=== PATIENT | female | born 1955 | race Caucasian/White ===

== ENCOUNTER → 2016-08-16 16:55 | Outpatient (CLI) | payer OTHER | END | disposition home or self-care (01) | LOC: D.MAMMO 14:45 | DX: Z12.31 Encounter for screening mammogram for malignant neoplasm of breast (principal) ==

== ENCOUNTER → 2017-07-28 15:24 | Outpatient (CLI) | payer OTHER | END | disposition home or self-care (01) | LOC: D.CT 15:24 | DX: R10.9 Unspecified abdominal pain (principal) ==

== ENCOUNTER → 2017-08-22 08:17 | Outpatient (CLI) | payer OTHER | END | disposition home or self-care (01) | LOC: D.MAMMO 08:17 | DX: Z12.31 Encounter for screening mammogram for malignant neoplasm of breast (principal) ==

== ENCOUNTER → 2017-09-19 08:25 | Outpatient (CLI) | payer OTHER | END | disposition home or self-care (01) | LOC: D.MRI 08:25 | DX: K83.9 Disease of biliary tract, unspecified (principal) ==

== ENCOUNTER 2018-03-05 06:40 | Emergency (ER) | payer OTHER ==
[~2018-03-05] VITALS: Ht 172.7 cm; Wt 55.0 kg
--- NOTE | ~2018-03-05 | CN ---
PATIENT NAME:MERLE IVORY MEDICAL RECORD: [id number] : 53 LOCATION:.ER ADMIT DATE: ACCOUNT: [id number] CONSULTING PHYSICIAN: SOPHIA TAPIA MD REFERRING PHYSICIAN: NOHEMI LAUREANO MD DATE OF CONSULTATION: 03/05/2018 DIAGNOSES: 1. Chest pain. 2. Palpitations. 3. Hypertension. HISTORY OF PRESENT ILLNESS: Mrs. Ivory presents with atypical chest pain. It is a right-sided chest pain, but it was associated with palpitations. She has had difficulty controlling her heart rate and blood pressure. She was placed on atenolol. She cannot tolerate this due to a rash. She was placed on Bystolic, could not tolerate that due to hypotension. Now, she is on diltiazem. Yesterday, she felt palpitations as well. She has only had sinus rhythm since being here. Her chest pain has resolved. It was very atypical. It was positional on the right side and radiated to her right arm. Her troponin is normal. PHYSICAL EXAMINATION: GENERAL APPEARANCE: Well-nourished, well-developed, appears stated age. Level of distress, comfortable. PSYCHIATRIC: Mental status, alert, normal affect. Orientation, oriented to time, place and person. EYES: Lids and conjunctiva, noninjected. No discharge, no pallor. ENT: Lips, teeth, gums, normal dentition. Oropharynx, no cyanosis, no pallor. NECK: Carotid arteries, bilateral normal upstroke, no bruits, no thrills. JUGULAR VEINS: No jugular venous pressure or distention. CERVICAL LYMPH NODES: Nontender, nonenlarged. THYROID: Not enlarged. Nontender. No nodules. LUNGS: Respiratory effort, unlabored. CHEST: Normal curvature. No thoracic deformity. No chest wall tenderness. Percussion, resonant. Auscultation, clear. No wheezes, no rales, no rhonchi. CARDIOVASCULAR: Precordial exam, nondisplaced. No heaves or pericardial thrills. Rate and rhythm, regular. Heart sounds, normal S1, normal S2. No S3, no gallop, no rub. Systolic murmur, not heard. Diastolic murmur, not heard. EXTREMITIES: No cyanosis, no edema. Peripheral pulses, full and equal in all extremities, except as noted. No bruits appreciated. ABDOMEN: Soft, nondistended. Normal aorta. No bruit. Nontender. No masses. Liver, nontender, no hepatomegaly. Spleen, nontender, no splenomegaly. MUSCULOSKELETAL: No joint tenderness. No joint swelling. No erythema. NEUROLOGICAL: Normal gait, normal strength, normal tone. SKIN: Warm and dry. OVERALL IMPRESSION: Chest pain, palpitation. Certainly sounds like she very well may been having a dysrhythmia. She is not tolerating the diltiazem. We will try Lopressor 50 mg b.i.d. and she tolerated the atenolol, felt better on the atenolol than anything. She will follow up us with a nuclear stress test as well. TRANSINT:[id number] Voice Confirmation ID: [id number] DOCUMENT ID: [id number] CONSULT REPORT [id number] MERLE IVORY, SOPHIA BYRNE at 1718 CC: [id number] DICTATION DATE: 03/05/18810 SOFTWARE LEAD: 03/05/18 1049 DEP ER 03/05/[address] [address]
[2018-03-05 06:48] VITALS: Ht 172.7 cm; Wt 55.0 kg
[2018-03-05] MEDS ORDERED: ZANTAC300 MG PO (06:50)
[2018-03-05] MEDS ORDERED: ADVIL200 MG (06:51)
[2018-03-05] MEDS ORDERED: NORVASC5 MG PO (06:51)
[2018-03-05] MEDS ORDERED: CARDIZEM30 MG PO (06:51)
[2018-03-05 07:52] LABS: ALBUMIN 4.2 g/dL (3.4-5.0); ALKALINE PHOSPHATASE 57 U/L (46-116); ALT (SGPT) 13 U/L (10-68); BILIRUBIN - TOTAL 0.39 mg/dL (0.2-1.3); CALC OSMOLALITY 267 mosm/kg (275-300); CALCIUM 9.4 mg/dL (8.5-10.1); CARBON DIOXIDE 25.2 mmol/L (21.0-32.0); CHLORIDE - SERUM 97 mmol/L (98-107); CREATININE - SERUM 0.9 mg/dL (0.6-1.3); GLUCOSE 102 mg/dL (74-106); POTASSIUM - SERUM 3.2 mmol/L (3.5-5.1); PROTEIN - SERUM 7.5 g/dL (6.4-8.2); SODIUM 135 mmol/L (136-145); UREA NITROGEN 6 mg/dL (7-18); eGFR NON AFRICAN AMERICAN 67 mL/min (90-120)
[2018-03-05 07:56] LABS: BASOPHILS 0.3 % (0-2); EOSINOPHILS 0.6 % (0-7); HEMATOCRIT 38.3 % (36.0-48.0); IMMATURE GRANULOCYTES 0.3 % (0-5); LYMPHOCYTES 11.1 % (15-50); MCH 30.2 pg (26.0-34.0); MCHC 33.9 g/dL (31.0-37.0); MCV 88.9 fL (80.0-100.0); MEAN PLATELET VOLUME 10.9 fL (7.4-10.4); MONOCYTES 6.7 % (2-11); PLATELET COUNT 275 10x3/uL (130-400); RBC 4.31 10x6/uL (4.00-5.40); WBC 10.2 10x3/uL (4.8-10.8)
[2018-03-05 07:57] LABS: APTT 27.2 SECONDS (22.8-39.4); INR 0.97 (0.85-1.17); PROTIME 12.4 SECONDS (11.6-15.0)
[2018-03-05 08:03] LABS: CKMB 0.8 U/L (0.0-3.6); CREATINE KINASE 83 UL (21-215); TROPONIN-I < 0.017 ng/mL (0.000-0.060)
[2018-03-05 08:44] VITALS: BP 135/078
== END 2018-03-05 08:46 | disposition home or self-care (01) ==
LOC: D.ER 06:40
PROVIDERS: Family Medicine
DX: R07.89 Other chest pain (principal); I10 Essential (primary) hypertension; K21.9 Gastro-esophageal reflux disease without esophagitis; F17.200 Nicotine dependence, unspecified, uncomplicated

== ENCOUNTER 2018-03-12 16:19 | Inpatient (IN) | payer OTHER ==
[~2018-03-12] VITALS: Ht 172.7 cm; Wt 51.3 kg
--- NOTE | ~2018-03-12 | OP ---
PATIENT NAME: MERLE GARY MEDICAL RECORD: [id number] :53 LOCATION:D. D.2118 ADMISSION DATE:03/12/18 SURGEON: SOPHIA TAPIA MD DATE OF OPERATION: 03/13/2018 PROCEDURES: 1. Left heart catheterization. 2. Selective coronary angiography. 3. Left ventriculogram. 4. Four-vessel carotid and vertebral angiography. INDICATION: Chest pain, dizziness, palpitation, shortness of breath. PROCEDURE IN DETAIL: After informed consent was obtained and after a detailed description of risks, benefits as well as alternative therapies, the patient elected to proceed with angiogram and heart catheterization. FINDINGS: Four-vessel was performed with subselection of each subclavian as well as the left carotid. RIGHT SYSTEM: The common internal and external carotids have no significant disease. Vertebral artery has no significant disease. LEFT SYSTEM: The common internal and external carotids have no significant disease. The vertebral artery has no significant disease. Left ventriculogram was performed in the standard 30-degree TORRE view reveals good cardiac wall motion throughout all segments. Overall ejection fraction estimated 60%. SELECTIVE CORONARY ANGIOGRAPHY: Left main, left anterior descending, left circumflex, right coronary artery are all smooth-walled vessels with no angiographic evidence of coronary artery disease. OVERALL IMPRESSION: 1. No angiographic evidence of coronary artery disease. 2. Normal left heart pressures. 3. Normal left ventricular systolic function. Chest pain is noncardiac in etiology. No further cardiac workup needs to be ascertained. TRANSINT:[id number] Voice Confirmation ID: [id number] DOCUMENT ID: [id number] SOPHIA TAPIA MD at 1108 CC: JACKELYN HENDRIX [id number] DICTATION DATE: 03/13/18 1553 COMMUNICATIONS STRATEGIST: 03/14/18 0001 DIS IN 03/13/18 [facility] [address] [facility] [place] [address]
--- NOTE | ~2018-03-12 | EC ---
PATIENT:MERLE GARY DATE OF SERVICE: 03/12/18 SEX: F MEDICAL RECORD: [id number] DATE OF : 53 LOCATION:D.M2 D.211 AGE OF PATIENT: 63 ADMISSION DATE: 03/12/18 REFERRING PHYSICIAN: INTERPRETING PHYSICIAN: SOPHIA WAITE MD ECHOCARDIOGRAM REPORT ECHO CHARGES 4 ECHO COMPLETE Date: 03/13/18 CLINICAL DIAGNOSIS: CHEST PAIN ECHOCARDIOGRAPHIC MEASUREMENTS (adult normal given) AC root (d.<3.7cm) 2.9 cm LV Septum d (<1.2 cm> 1.2 cm Valve Excursion 1.1 cm LV Septum (systole) 1.3 cm Left Atria (s.<4.0cm> 2.8 cm LVPW d(<1.2cm) 1.4 cm RV (d.<2.3cm) 3.4 cm LVPW (sytole) 1.7 cm LV diastole(<5.6CM) 4.6 cm MV E-F(>70mm/sec) cm LV systole 3.3 cm LVOT Diameter 1.6 cm MV exc.(>10mm) 1.3 cm Est.ejection fraction (50-75%) % DOPPLER: LVIT cm/sec A 64.0 cm/sec E 80.0 cm/sec LA cm/sec RVSP 30 mmHg LVOT 113 cm/sec AOP1/2T m/s Asc. Ao 175 cm/sec RVOT 93 cm/sec RA cm/sec PA 140 cm/sec AV Gradient Peak 12.25mmHg AV Mean 6.23 mmHg AV Area 1.5 cm MV Gradient Peak 3.36 mmHg MV Mean 1.11 mmHg MV Area cm COMMENTS: Talent Sourcer: Leonardo HIGUERA Hydrogen Cell Tender: 1 Dr. Waite TAPE# PACS Pericardial Effusion N DATE OF SERVICE: 03/13/2018 PROCEDURE: Echocardiogram. FINDINGS: 1. Left ventricular chamber size is within normal limits. Left ventricular systolic function is normal. Overall ejection fraction estimated at 60%. 2. Left atrium, right atrium, and right ventricle chamber sizes are within normal limits. 3. Valvular structures have normal structure and motion. ECHOCARDIOGRAM REPORT [id number] MERLE GARY 4. Doppler interrogation only reveals mild tricuspid regurgitation, no other valvular insufficiency or stenosis. Pulmonary systolic pressure is normal estimated 30 mmHg. 5. No evidence of pericardial effusion or left ventricular thrombus. TRANSINT:[id number] Voice Confirmation ID: [id number] DOCUMENT ID: [id number] SOPHIA WAITE MD at 1108 CC: [id number] DICTATION DATE: 03/13/18 1607 BUSINESS MACHINE OPERATOR: 03/14/18 0013 DIS IN 03/13/18 [place] [id number] [place] [id number]
--- NOTE | ~2018-03-12 | MORECARE ---
CASE MANAGEMENT DISCHARGE SUMMARY PATIENT: MERLE GARY UNIT: [id number] ADM DATE: 03/12/18 AGE: 63 : 53 SEX: F ROOM/BED: D.6564 AUTHOR: RONALD MONTAÑO PHYSICIAN: REFERRING PHYSICIAN: JACKELYN HENDRIX MD DATE OF SERVICE: 03/16/18 Discharge Plan Patient Name: MERLE GARY [facility] : 1955 Planned Disposition: Home Anticipated Discharge Date: 03/13/18 Discharge Date: 03/13/2018 Expected LOS: 1 Initial Reviewer: [email or web address] Initial Review Date: 03/16/2018 Generated: 03/16/18 1:13 pm Patient Name: MERLE GARY Page [phone] at 1213 All edits/amendments must be made on the electronic document DICTATION DATE: 03/16/18 1212 COMMERCIAL MANAGEMENT ACCOUNTANT: SANJIV 03/16/18 1212 RPT#: [id number] DC DATE:03/13/18 STATUS: DIS IN [facility] [address] [place] [address] END OF REPORT
--- NOTE | ~2018-03-12 | HP ---
PATIENT: MERLE GARY MEDICAL RECORD: [id number] ACCOUNT: [id number] LOCATION:[address] : 53 ADMISSION DATE: 03/12/18 PCP: JACKELYN HENDRIX MD HISTORY AND PHYSICAL EXAMINATION DATE OF ADMISSION: 03/12/2018 CHIEF COMPLAINT: Extreme fatigue as well as cardiac palpitation, chest pain, weight loss, and decreased appetite. HISTORY OF PRESENT ILLNESS: The patient is a 63-year-old female who, over the past month, has experienced weakness and dizziness. Also she has had cardiac palpitations. She has been seen by the optical design engineer. She has been tried on beta-alphonso. She had presented to the Emergency Room, tried on different beta-blockers. The patient states she became extremely fatigued. She has had shortness of breath with exertion. It was felt the patient warrants acute admission. PAST MEDICAL HISTORY: Significant in that she has had hypertension. She has also had some depression. She has had anemia in the past. She is . FAMILY HISTORY: Father had hypertension, had heart disease. Mother also had colon cancer. SOCIAL HISTORY: The patient works in [employer]. She is educated to the 12th grade. She is currently . One pack per day smoker for most of her adult life. She denies any ethanol use or abuse. She was born in [place] and resides in [place] along with her . PAST SURGICAL HISTORY: She has had a cholecystectomy. MEDICATIONS: The patient's medications currently include Cozaar 50 mg once a day, ranitidine 150 mg b.i.d., and Vistaril 25 q. 6 hours p.r.n. itching. ALLERGIES: AUGMENTIN, CEFTIN, IV CONTRAST, LEVAQUIN, AND SULFA. REVIEW OF SYSTEMS: CONSTITUTIONAL: She denies any headache, seizure, or syncope. She denies change in visual or auditory acuity. PULMONARY: She does report some increasing shortness of breath. CARDIOVASCULAR: Chest pain with exertion. GASTROINTESTINAL: No chronic nausea, vomiting, melena, or hematochezia. GENITOURINARY: No urgency, frequency, or dysuria. PHYSICAL EXAMINATION: VITAL SIGNS: Today, her weight is 120 pounds, her pulse is 92, and O2 sat is 98% on room air. Her blood pressure is 136/82 and her respirations are 16. HEENT: Her head is normocephalic. No lesions. Ears; TMs are clear. Eyes; pupils are equal, round, and reactive to light. Her extraocular movements are intact. Nasal cavity, oral cavity, and oropharynx are clear. NECK: Supple. There is no adenopathy. HEART: Regular rate and rhythm without any murmurs, gallops, or rubs. LUNGS: Clear. ABDOMEN: Soft. Bowel sounds are positive. EXTREMITIES: Lower extremities have no edema. HISTORY AND PHYSICAL [id number] MERLE GARY ASSESSMENT: 1. Extreme fatigue with shortness of breath, cardiac palpitations, and chest pain. 2. Hypertension. 3. Gastroesophageal reflux. PLAN: The patient will be admitted. She will have a CT scan of the abdomen. Cardiology consultation will be obtained for possible cardiac catheterization. We will obtain ABGs, CBC, CMP, and cardiac enzymes. Continue to evaluate this. TRANSINT:[id number] Voice Confirmation ID: [id number] DOCUMENT ID: [id number] JACKELYN HENDRIX MD at 1123 CC: [id number] DICTATION DATE: 03/12/18 1727 [employer] SALESPERSON: 03/12/18 1812 DIS IN 03/13/18 [facility] [address] [place] [address]
--- NOTE | ~2018-03-12 | HEMODYNAMI ---
PATIENT:MERLE GARY MEDICAL RECORD: [id number] : 53 LOCATION:[facility] D2118 ADMISSION DATE: 03/12/18 Generatedon:03/13/201815:54 Patient name: MERLE GARY Patient #: [id number] SSN: DO B: 1955 Date of study: 03/13/2018 Page: Of Hemodynamic Procedure Report Patient Data Patient Demographics Procedure consent was obtained First Name: MERLE Gender: Female Last Name: ABDIRAHMAN : 1955 Patient #: [id number] Age: 63 year(s) Race: Unknown Additional ID: [id number] Contact details Address: [facility] [address] State: [place] City: [place] Zip code: [address] Past Medical History Allergies Allergen Reaction Date Comments Reported Iodine 03/13/2018 Sulfa drugs 03/13/2018 Amoxicillin 03/13/2018 Admission Admission Data Admission Date: 03/12/2018 Admission Time: 16:19 Room #: D2118 Lab Results Lab Result Date: 03/13/2018 Lab Result Time: 0:00 Biochemistry Name Units Result Min Max BUN mg/dl 14.5 --(--*-)-- 7 18 Creatinine mg/dl 0.7 --(*---)-- 0.6 1.3 CBC Name Units Result Min Max Hemoglobin g/dl 11.9 *-(----)-- 13.5 17.5 Procedure Procedure Types Cath Procedure Diagnostic Procedure LHC LHC w/Coronaries Peripheral Cath Diagnostic Procedure Cook Fish And Chips Peripheral Procedures Four Vessel Arteriogram Procedure Description Procedure Date Procedure Date: 03/13/2018 Procedure Start Time: 15:40 Procedure End Time: 15:49 Procedure Staff Name Function Jag Waite MD Performing Physician Terell Medina RT Monitor Sabina Narayanan RT Scrub Eric Olvera RN Nurse Procedure Data Cath Procedure Fluoroscopy Diagnostic fluoroscopy Total fluoroscopy Time: 1.6 time: 1.6 min min Diagnostic fluoroscopy Total fluoroscopy dose: dose: 51.57 mGy 51.57 mGy Contrast Material Contrast Material Type Amount (ml) Isovue 300 47 Entry Location Entry Primary Successful Side Size Upsize Upsize Entry Closure Succes sful Closure Location (Fr) 1 (Fr) 2 (Fr) Remarks Device Remarks Femoral Right 5 Fr Exoseal artery Diagnostic catheters Device Type Used For End Catheter Placement MULTIPACK Pigtail 5 Fr LV Angiography catheter MULTIPACK JL 4.0 5Fr Left Coronary catheter Angiography MULTIPACK 3DRC 5Fr Right Coronary catheter Angiography Procedure Complications No complications Procedure Medications Medication Administration Route Dosage Oxygen etCO2 Nasal cannula 2 l/min Zofran I.V. 4 mg Lidocaine 2% added to field 20 Heparin Flush Bag added to field 2 bags (1000units/500ml NS) 0.9% NaCl I.V. 100 ml/hr Versed I.V. 2 mg Fentanyl I.V. 100 mcg Versed I.V. 1 mg Fentanyl I.V. 50 mcg Hemodynamics Rest HGB: 11.9 (g/dl) Heart Rate: 83 (bpm) Snapshots Pre Cath Intra NCS Post Cath Vital Signs Time Heart Resp SPO2 etCO2 NIBP (mmHg) Rhythm Pain Sedation Rate (ipm) (%) (mmHg) Status Level (bpm) 15:30:07 81 14 96 137/87(108) NSR 0 (11) 10(A) , No pain 15:34:17 75 16 97 115/70(97) NSR 0 (11) 10(A) , No pain 15:38:19 75 13 98 28.8 130/73(94) NSR 0 (11) 10(A) , No pain 15:42:27 70 18 99 23.4 113/67(89) NSR 0 (11) 9(A) , No pain 15:46:29 77 16 98 20.4 127/72(96) NSR 0 (11) 9(A) , No pain 15:52:00 73 18 99 15.1 110/65(86) NSR 0 (11) 10(A) , No pain Medications Time Medication Route Dose Verified Delivered Reason Notes Eff ectiveness by by 15:28:17 Oxygen etCO2 2 Jag Reyes used for Nasal l/min Mariann Olvera RN procedure cannula 15:28:31 Zofran I.V. 4 mg Jag Reyes for nausea Mariann Olvera RN 15:28:40 Lidocaine 2% added 20ml Jag Rm for local to vial Mariann Waite MD anesthetic field 15:28:46 Heparin Flush added 2 Jag Rm used for Bag to bags Mariann Waite MD procedure (1000units/500ml field NS) 15:28:56 0.9% NaCl I.V. 100 Jag Reyes Per ml/hr Mariann Olvera RN physician 15:38:17 Versed I.V. 2 mg Jag Reyes for Mariann Olvera RN sedation 15:38:23 Fentanyl I.V. 100 Jag Combsie for mcg Mariann Olvrea RN sedation 15:43:16 Versed I.V. 1 mg Jag Reyes for Mariann Olvera RN sedation 15:43:20 Fentanyl I.V. 50 Jag Combsie for mcg Mariann Olvera RN sedation Procedure Log Time Note 15:08:12 Signed procedure consent form obtained from patient. 15:08:14 Diagnostic Cath status Elective 15:08:15 Terell Medina RT(R) sent for patient. Start room use. 15:08:16 Time tracking: Regular hours (M-F 7:00 - 5:00) 15:08:20 Plan of Care:Hemodynamics will remain stable., Cardiac rhythm will remain stable., Comfort level will be maintained., Respiratory function will remain adequate., Patient/ family verbilizes understanding of procedure., Procedure tolerated without complication., Recovers from procedure without complications.. 15:18:55 Patient received from Med II to CCL 3 Alert and oriented. Tansferred to table in Supine position. 15:18:56 Warm blankets applied, and kwame hugger turned on for patient comfort. 15:18:57 Correct patient and procedure confirmed by team. 15:28:17 Oxygen 2 l/min etCO2 Nasal cannula was administered by Eric Olvera RN; used for procedure; 15:28:31 Zofran 4 mg I.V. was administered by Eric Olvera RN; for nausea; 15:28:40 Lidocaine 2% 20ml vial added to field was administered by Jag Waite MD; for local anesthetic; 15:28:46 Heparin Flush Bag (1000units/500ml NS) 2 bags added to field was administered by Jag Waite MD; used for procedure; 15:28:56 0.9% NaCl 100 ml/hr I.V. was administered by Eric Olvera RN; Per physician; 15:29:00 Vital chart was started 15:31:18 Baseline sample Acquired. 15:31:18 ECG and BP/O2 sat monitors applied to patient. 15:31:21 Rhythm: sinus rhythm 15:31:24 Full Disclosure recording started 15:31:36 H&P Date Dictated: 03/13/2018 Within 30 days and on chart.. 15:31:38 Pre-procedure instructions explained to patient. 15:31:38 Pre-op teaching completed and patient verbalized understanding. 15:31:40 Family in patients room. 15:31:41 Patient NPO since Midnight. 15:31:49 Patient allergic to Iodine 15:32:14 Patient allergic to Sulfa drugs 15:32:19 Patient allergic to Amoxicillin 15:32:28 Is the patient allergic to Iodine/contrast media? Yes. 15:32:30 Was the patient premedicated? Yes 15:32:43 Is patient on blood thinner?No 15:32:46 Patient diabetic? No. 15:32:48 If diabetic: On Metformin? No 15:32:49 ----Pre-sedation anethsthesia assessment.---- 15:32:51 Previous problem with sedation/anesthesia? No ? 15:32:54 Snore? No 15:32:55 Sleep apnea? No 15:32:56 Deviated septum? No 15:32:58 Opens mouth fully? Yes 15:33:00 Sticks out tongue? Yes 15:33:03 Airway obstruction? No ? 15:33:08 Dentures? No ? 15:33:10 Pre procedure: right dorsailis pedis pulse 2+ Normal; easily identifiable; not easily obliterated 15:33:13 Patient pain scale 0/10 ?. 15:34:10 IV patent on arrival in left forearm with 0.9% NaCl at 10ml/hr. 15:34:44 Lab Result : BUN 14.5 mg/dl 15:34:44 Lab Result : Hemoglobin 11.9 g/dl 15:34:44 Lab Result : Creatinine 0.7 mg/dl 15:35:16 Lab results completed and on chart. 15:35:19 Right groin area was prepped with chlora-prep and draped in sterile fashion 15:35:20 Alarms reviewed by R. N. 15:35:20 Sharps counted by scrub and verified by R.N. 15:35:22 Physician arrived 15:35:22 --------ALL STOP TIME OUT------ 15:35:23 Final Timeout: patient, procedure, and site verified with staff and physician. All members of the team are in agreement. 15:35:27 Right groin site verified by team. 15:35:30 Physical assessment completed. ASA score P 2 - A patient with mild systemic disease as per Jag Waite MD. 15:35:33 Sedation plan: IV Moderate Sedation Medication:Versed, Fentanyl 15:38:14 Zero performed for pressure channel P1 15:38:17 Versed 2 mg I.V. was administered by Eric Olvera RN; for sedation; 15:38:23 Fentanyl 100 mcg I.V. was administered by Eric Olvera RN; for sedation; 15:38:33 Use device set Femoral Dx 15:38:39 ACIST Syringe (56313) opened to sterile field. 15:38:40 Bag Decanter (2002S) opened to sterile field. 15:38:41 Medline Cath Pack ([id number]) opened to sterile field. 15:38:42 DIAGNOSTIC WIRE .035 260cm J wire (711001) opened to sterile field. 15:38:43 ACIST Hand Control (91839) opened to sterile field. 15:38:44 ACIST Manifold (98647) opened to sterile field. 15:38:45 DIAGNOSTIC Multipack 5Fr catheter set ([id number]) opened to sterile field. 15:38:46 Tegaderm 4 x 4 (1626W) opened to sterile field. 15:38:49 SHEATH 5FR [place] (ATI632) opened to sterile field. 15:39:56 Procedure started. 15:40:57 Local anesthetic to right femoral artery with Lidocaine 2% by Jag Waite MD.INITIAL ACCESS ONLY 15:41:10 A 5 Fr sheath was inserted into the Right Femoral artery 15:41:20 A MULTIPACK Pigtail 5 Fr catheter was advanced over the wire and used for LV Angiography. 15:41:24 LV angiography performed. 15:41:25 LV gram done using TORRE 15:42:51 EF : 60 % 15:42:53 Catheter removed. 15:43:16 Versed 1 mg I.V. was administered by Eric Olvera RN; for sedation; 15:43:20 Fentanyl 50 mcg I.V. was administered by Eric Olvera RN; for sedation; 15:43:50 A MULTIPACK JL 4.0 5Fr catheter was advanced over the wire and used for Left Coronary Angiography. 15:43:57 LCA angiography performed. 15:44:38 Catheter removed. 15:44:45 A MULTIPACK 3DRC 5Fr catheter was advanced over the wire and used for Right Coronary Angiography. 15:44:50 RCA angiography performed. 15:45:16 Right carotid angiography performed. 15:45:18 Right subclavian angiography performed 15:45:19 Left carotid angiography performed. 15:45:20 Left subclavian angiography performed 15:46:31 Catheter removed. 15:46:38 Contrast amount:Isovue 300 47ml. 15:46:50 Sheath removed intact; hemostasis achieved with Exoseal to the Right Femoral artery. 15:47:56 EXOSEAL 5Fr (EX500) opened to sterile field. 15:47:58 Procedure ended.(Physican Out) 15:48:27 Fluoroscopy time 01.60 minutes. 15:48:38 Fluoroscopy dose: 51.57 mGy 15:48:38 Flurop Dose total: 51.57 15:48:40 Sharps counted by scrub and verified by R.N. 15:48:42 Insertion/operative site no bleeding no hematoma. 15:48:44 Post-op/insertion site Right Femoral artery dressed using a 4 x 4 and Tegaderm. 15:48:47 Post right femoral artery:stable 15:48:49 Post Procedure Pulses reassessed and unchanged 15:48:51 Post procedure: right dorsailis pedis pulse 1+ Palpable, but thready & weak; easily obliterated. 15:48:55 Post procedure rhythm: sinus rhythm 15:48:57 Post procedure instruction explained to patient.Patient verbalizes understanding. 15:49:00 Procedure and supply charges have been captured, reviewed, submitted and are correct. 15:49:09 Procedure Complication : No complications 15:49:11 Vital chart was stopped 15:49:12 See physician's report for complete and final results. 15:49:13 Report given to PCU. 15:49:17 Patient transfered to PCU with Bed. 15:49:18 Procedure ended. 15:49:18 Full Disclosure recording stopped 15:49:25 End room use (Document Last) 15:50:09 Procedure type changed to Cath procedure, Diagnostic procedure, LHC, LHC w/Coronaries, Peripheral Cath Diagnostic Procedure, Cook Fish And Chips Peripheral Procedures, Four Vessel Arteriogram Device Usage Item Name Manufacture Quantity Catalog Hospital Part Current Minimal L ot# / Number Charge Number Stock Stock Serial# Code ACIST Acist 1 02280 649607 683231 255847 20 Syringe Medical (32614) Systems Inc Bag Microtek 1 2001S 208025 14147 266894 5 Decanter Medical Inc. () Medline Medline 1 [id number] 309267 95056 824668 5 Cath Pack ([id number]) DIAGNOSTIC [facility] [place] 1 252821 117476 700905 512790 30 WIRE .035 260cm J wire (201982) ACIST Hand Acist 1 62817 069722 375735 691092 5 Control Medical (31146) Systems Inc ACIST Acist 1 62499 534446 948883 376113 5 Manifold Medical (75952) Systems Inc DIAGNOSTIC Cardinal 1 XZ0033 838074 77877 287320 30 Multipack Health 5Fr catheter set ([id number]) Tegaderm 4 3M 1 1626W 233834 819507 762076 5 x 4 (1626W) SHEATH 5FR Terumo 1 XLL355 378266 010798 111399 5 [place] (JJC845) MULTIPACK Cardinal 1 857035 5 Pigtail 5 Health Fr catheter MULTIPACK Cardinal 1 106668 5 JL 4.0 5Fr Health catheter MULTIPACK Cardinal 1 484075 5 3DRC 5Fr Health catheter EXOSEAL 5Fr Cardinal 1 EX500 572306 714884 862410 10 (EX500) Health Signature Audit [place] Stage Time Signature Unsigned Intra-Procedure 03/13/2018 Terell Medina RT(R) 3:54:19 PM Signatures Monitor : Terell Medina RT Signature : Date : Time : [place] [address] [place] [address]
[~2018-03-12 16:19] MED LIST: ADVIL200 MG; CARDIZEM30 MG PO; NORVASC5 MG PO; ZANTAC300 MG PO
[2018-03-12] MEDS ORDERED: COZAAR50 MG PO (17:07)
[2018-03-12] MEDS ORDERED: RANITIDINE HCL150 M1 PO (17:08)
[2018-03-12 18:39] LABS: BASOPHILS 0.6 % (0-2); HEMATOCRIT 35.5 % (36.0-48.0); HEMOGLOBIN 11.9 g/dL (12-16); LYMPHOCYTES 23.5 % (15-50); MCH 30.1 pg (26.0-34.0); MCHC 33.5 g/dL (31.0-37.0); MCV 89.6 fL (80.0-100.0); MEAN PLATELET VOLUME 10.6 fL (7.4-10.4); MONOCYTES 12.2 % (2-11); NEUTROPHILS 61.7 % (40-80); PLATELET COUNT 232 10x3/uL (130-400); RBC 3.96 10x6/uL (4.00-5.40); WBC 7.2 10x3/uL (4.8-10.8)
[2018-03-12 18:40] VITALS: BMI 18.2
[2018-03-12 19:04] LABS: ALBUMIN 3.8 g/dL (3.4-5.0); ALKALINE PHOSPHATASE 49 U/L (46-116); ALT (SGPT) 13 U/L (10-68); BILIRUBIN - TOTAL 0.35 mg/dL (0.2-1.3); CALC OSMOLALITY 266 mosm/kg (275-300); CALCIUM 8.8 mg/dL (8.5-10.1); CHLORIDE - SERUM 99 mmol/L (98-107); CREATININE - SERUM 0.7 mg/dL (0.6-1.3); GLUCOSE 123 mg/dL (74-106); POTASSIUM - SERUM 3.5 mmol/L (3.5-5.1); PROTEIN - SERUM 6.5 g/dL (6.4-8.2); SODIUM 134 mmol/L (136-145); UREA NITROGEN 6 mg/dL (7-18); eGFR NON AFRICAN AMERICAN 89 mL/min (90-120)
[2018-03-12 19:15] LABS: CKMB 0.5 U/L (0.0-3.6); CREATINE KINASE 63 UL (21-215); T4 THYROXINE 10.7 ug/dL (4.7-13.3); THYROID STIMULATING HORMONE 0.89 uIU/mL (0.36-3.74); TROPONIN-I < 0.017 ng/mL (0.000-0.060)
[2018-03-12 20:10] VITALS: BP 115/66; BP 120/60
[2018-03-12 20:11] VITALS: BP 175/85
[2018-03-12 21:54] VITALS: BP 120/60
[2018-03-13 00:33] VITALS: BP 129/66
[2018-03-13 05:13] VITALS: BP 151/86
[2018-03-13 05:24] LABS: CALC OSMOLALITY 278 mosm/kg (275-300); CALCIUM 8.9 mg/dL (8.5-10.1); CARBON DIOXIDE 27.7 mmol/L (21.0-32.0); CHLORIDE - SERUM 103 mmol/L (98-107); CREATININE - SERUM 0.8 mg/dL (0.6-1.3); GLUCOSE 96 mg/dL (74-106); SODIUM 141 mmol/L (136-145); UREA NITROGEN 7 mg/dL (7-18); eGFR NON AFRICAN AMERICAN 76 mL/min (90-120)
[2018-03-13 05:25] LABS: BASOPHILS 0.6 % (0-2); EOSINOPHILS 2.9 % (0-7); HEMATOCRIT 38.1 % (36.0-48.0); HEMOGLOBIN 12.6 g/dL (12-16); IMMATURE GRANULOCYTES 0.2 % (0-5); LYMPHOCYTES 22.9 % (15-50); MCH 29.9 pg (26.0-34.0); MCHC 33.1 g/dL (31.0-37.0); MCV 90.5 fL (80.0-100.0); MEAN PLATELET VOLUME 11.4 fL (7.4-10.4); MONOCYTES 9.5 % (2-11); NEUTROPHILS 63.9 % (40-80); PLATELET COUNT 262 10x3/uL (130-400); RBC 4.21 10x6/uL (4.00-5.40); RDW 13.1 % (11.5-14.5); WBC 6.5 10x3/uL (4.8-10.8)
[2018-03-13 05:31] LABS: POTASSIUM - SERUM 4.2 mmol/L (3.5-5.1)
[2018-03-13 06:41] LABS: APPEARANCE CLEAR (CLEAR); BILIRUBIN NEGATIVE (NEGATIVE); COLOR STRAW (YELLOW); GLUCOSE NEGATIVE (NEGATIVE); KETONE NEGATIVE (NEGATIVE); NITRITE NEGATIVE (NEGATIVE); PROTEIN NEGATIVE (NEGATIVE); UROBILINOGEN NORMAL (NORMAL)
[2018-03-13 08:50] VITALS: BP 136/83
[2018-03-13 13:31] VITALS: Ht 172.7 cm; Wt 51.3 kg
[2018-03-13 14:42] VITALS: BP 122/65
[2018-03-13 17:08] VITALS: BP 117/73
== END 2018-03-13 20:30 | disposition home or self-care (01) | DRG 287 ==
LOC: D.M2 16:19
PROVIDERS: Family Medicine; Internal Medicine Interventional Cardiology
PROC: 4A023N7 Measurement of Cardiac Sampling and Pressure, Left Heart, Percutaneous Approach (ICD-10-PCS; 2018-03-13)
PROC: B3151ZZ Fluoroscopy of Bilateral Common Carotid Arteries using Low Osmolar Contrast (ICD-10-PCS; 2018-03-13)
PROC: B31G1ZZ Fluoroscopy of Bilateral Vertebral Arteries using Low Osmolar Contrast (ICD-10-PCS; 2018-03-13)
PROC: B3121ZZ Fluoroscopy of Left Subclavian Artery using Low Osmolar Contrast (ICD-10-PCS; 2018-03-13)
PROC: B3181ZZ Fluoroscopy of Bilateral Internal Carotid Arteries using Low Osmolar Contrast (ICD-10-PCS; 2018-03-13)
PROC: B31C1ZZ Fluoroscopy of Bilateral External Carotid Arteries using Low Osmolar Contrast (ICD-10-PCS; 2018-03-13)
PROC: B2111ZZ Fluoroscopy of Multiple Coronary Arteries using Low Osmolar Contrast (ICD-10-PCS; principal; 2018-03-13 15:08)
PROC: B2151ZZ Fluoroscopy of Left Heart using Low Osmolar Contrast (ICD-10-PCS; 2018-03-13 15:08)
DX: R00.2 Palpitations (principal); R06.02 Shortness of breath; I10 Essential (primary) hypertension; K21.9 Gastro-esophageal reflux disease without esophagitis; F32.9 Major depressive disorder, single episode, unspecified; R42 Dizziness and giddiness

== ENCOUNTER → 2018-03-24 07:21 | Outpatient (CLI) | payer OTHER ==
[2018-03-13 13:31] VITALS: BMI 17.1
[~2018-03-24 07:21] MED LIST changes: +COZAAR50 MG PO; +RANITIDINE HCL150 M1 PO
== END | disposition home or self-care (01) ==
LOC: D.CT 07:21
DX: R06.02 Shortness of breath (principal)

== ENCOUNTER 2018-03-28 05:46 | Emergency (ER) | payer OTHER ==
[~2018-03-28] VITALS: Ht 172.7 cm; Wt 52.3 kg
[2018-03-28 05:55] VITALS: Ht 172.7 cm; Wt 52.3 kg
[2018-03-28 06:57] VITALS: BP 139/87
== END 2018-03-28 06:58 | disposition home or self-care (01) ==
LOC: D.ER 05:46
DX: F45.8 Other somatoform disorders (principal); F41.9 Anxiety disorder, unspecified; R06.02 Shortness of breath; I10 Essential (primary) hypertension

== ENCOUNTER → 2019-06-21 18:33 | Outpatient (CLI) | payer MEDICARE, BC ==
[2018-03-28 05:55] VITALS: BMI 17.5
== END | disposition home or self-care (01) ==
LOC: D.MAMMO 05-28 11:45
PROVIDERS: ATTEND Family Medicine
DX: Z12.31 Encounter for screening mammogram for malignant neoplasm of breast (principal)

== ENCOUNTER → 2020-01-04 10:48 | Outpatient (CLI) | payer MEDICARE, BC ==
[2018-03-28 05:55] VITALS: BMI 17.5
== END | disposition home or self-care (01) ==
LOC: D.US 10:48
PROVIDERS: ATTEND Internal Medicine Cardiovascular Disease
DX: I65.23 Occlusion and stenosis of bilateral carotid arteries (principal)

== ENCOUNTER → 2020-06-09 10:22 | Outpatient (CLI) | payer MEDICARE, BC ==
[2018-03-28 05:55] VITALS: BMI 17.5
== END | disposition home or self-care (01) ==
LOC: D.LAB 10:22
PROVIDERS: ATTEND Internal Medicine Pulmonary Disease
DX: Z20.822 Contact with and (suspected) exposure to COVID-19 (principal)

== ENCOUNTER 2020-06-14 08:32 | Day surgery (SDC) | payer MEDICARE, BC ==
[~2020-06-14] VITALS: Ht 172.7 cm; Wt 60.5 kg
[2020-06-14 08:48] LABS: BASOPHILS 0.3 % (0-2); EOSINOPHILS 1.2 % (0-7); HEMATOCRIT 39.5 % (36.0-48.0); HEMOGLOBIN 13.1 g/dL (12-16); IMMATURE GRANULOCYTES 0.1 % (0-5); LYMPHOCYTE ABS# 1.09 10x3/uL (1.18-3.74); LYMPHOCYTES 12.1 % (15-50); MCH 29.5 pg (26.0-34.0); MCHC 33.2 g/dL (31.0-37.0); MEAN PLATELET VOLUME 9.9 fL (7.4-10.4); MONOCYTES 8.3 % (2-11); NEUTROPHIL ABS# 7.03 10x3/uL (1.56-6.13); PLATELET COUNT 279 10x3/uL (130-400); RBC 4.44 10x6/uL (4.00-5.40); RDW 13.8 % (11.5-14.5)
[2020-06-14 09:06] LABS: APTT 27.2 SECONDS (22.8-39.4); INR 1.01 (0.85-1.17); PROTIME 12.3 SECONDS (11.6-15.0)
[2020-06-14 09:55] VITALS: Ht 172.7 cm; Wt 60.5 kg
[2020-06-14] MEDS ORDERED: NORVASC2.5 MG PO (10:11)
--- NOTE | 2020-06-14 15:38 | NUR ---
1400 IV REMOVED AND INSTRUCTIONS GIVEN
[2020-06-15 16:10] LABS: ACID FAST SMEAR Negative (()); AFB SPECIMEN PROCESSING Concentration (())
[2020-06-15 17:09] LABS: AFB SPECIMEN PROCESSING Concentration (())
[2020-06-16 10:12] LABS: ACID FAST SMEAR Negative (()); FUNGUS STAIN Final report (())
[2020-06-16 14:11] LABS: FUNGUS STAIN Final report (())
== END 2020-06-14 14:35 | disposition home or self-care (01) ==
LOC: D.OPS 08:32
PROVIDERS: ATTEND Internal Medicine Pulmonary Disease
DX: R04.2 Hemoptysis (principal)

== ENCOUNTER → 2020-07-06 11:04 | Outpatient (CLI) | payer MEDICARE, BC ==
[2020-06-14 09:55] VITALS: BMI 20.2
[~2020-07-06 11:04] MED LIST changes: +NORVASC2.5 MG PO
== END | disposition home or self-care (01) ==
LOC: D.LAB 11:04
PROVIDERS: ATTEND Internal Medicine Pulmonary Disease
DX: Z11.52 Encounter for screening for COVID-19 (principal)

== ENCOUNTER → 2020-07-11 08:35 | Outpatient (CLI) | payer MEDICARE, BC ==
[2020-06-14 09:55] VITALS: BMI 20.2
== END | disposition home or self-care (01) ==
LOC: D.RT 08:35
PROVIDERS: ATTEND Internal Medicine Pulmonary Disease
DX: J44.9 Chronic obstructive pulmonary disease, unspecified (principal)